=== PATIENT | female | born 1940 | race Caucasian/White ===

== ENCOUNTER 2016-11-02 16:04 | Outpatient (CLI) | payer MEDICARE ==
[2016-11-02 22:05] LABS: Bilirubin Negative (Negative); Blood, Urine Trace (Negative); Glucose, Urine (Dipstick) Negative (Negative); Ketone, Urine Negative (Negative); Nitrite Positive (Negative); Protein, Urine (Dipstick) Negative (Neg-Trace); Urobilinogen 0.2 mg/dL (0.2-1.0)
[2016-11-02 22:28] LABS: Bacteria/HPF 4+ HPF (None Seen); RBC/HPF None Seen HPF (0-3)
== END 2016-11-02 16:05 | disposition home or self-care (01) ==
LOC: NAVSJIPCSP 16:04
PROVIDERS: ATTEND Internal Medicine
DX: N39.0 Urinary tract infection, site not specified (principal)
CPT/HCPCS: 81003; 81015; 87086

== ENCOUNTER 2016-11-09 08:50 | Outpatient (CLI) | payer MEDICARE ==
[2016-11-09 12:27] LABS: #Basophils 0.1 thou/uL (0.0-0.2); #Eosinphils 0.5 thou/uL (0.0-0.7); #Lymphocytes 2.5 thou/uL (1.20-3.40); #Monocytes 0.5 thou/uL (0.11-0.59); #Neutrophils 5.6 thou/uL (1.40-6.50); %Basophils 1.5 % (0.0-1.0); %Lymphocytes 27.5 % (21.0-51.0); %Monocytes 5.2 % (0.0-10.0); Hematocrit 39.7 % (36.0-47.0); Mean Platelet Volume 5.6 fL (7.4-10.4); Red Blood Cell (RBC) Count 4.42 mill/uL (4.20-5.40); White Blood Cell (WBC) Count 9.2 thou/uL (4.8-10.8)
[2016-11-09 12:33] LABS: ALT (SGPT) 16 U/L (0-55); AST (SGOT) 14 U/L (5-34); Alkaline Phosphatase 77 U/L (40-150); Anion Gap 20 mmol/L (10-20); BUN (Urea Nitrogen) 14 mg/dL (9.8-20.1); Bilirubin, Total 0.5 mg/dL (0.2-1.2); Calc. Creatinine Clearance 0 mL/min (70-130); Calcium 9.5 mg/dL (7.8-10.44); Carbon Dioxide 22 mmol/L (23-31); Chloride 106 mmol/L (98-107); Estimated GFR-MDRD 57; Globulin 2.6 g/dL (2.4-3.5); LDL Cholesterol, Calculated 117 mg/dL; Protein, Total 6.7 g/dL (5.8-8.1)
== END 2016-11-09 08:51 ==
LOC: NAVSJIPCSP 08:50
PROVIDERS: ATTEND Internal Medicine
DX: E78.5 Hyperlipidemia, unspecified (principal)
CPT/HCPCS: 36415; 80053; 80061; 85025

== ENCOUNTER 2017-03-08 16:03 | Outpatient (CLI) | payer MEDICARE ==
--- NOTE | 2017-03-08 16:57 | RAD ---
PA AND LATERAL VIEWS OF CHEST: Date: 03/08/17 HISTORY: Bronchitis with acute exacerbation. FINDINGS/IMPRESSION: The heart size is normal. The lungs are well expanded. There is mild infiltrate in the left posterio r lung base. No pneumothorax or pleural effusions are seen. The possibility of pneumonia should be c onsidered. POS: OFF
== END 2017-03-08 16:04 | disposition home or self-care (01) ==
LOC: NAV RAD 16:03
PROVIDERS: ATTEND Internal Medicine
DX: J45.901 Unspecified asthma with (acute) exacerbation (principal); R91.8 Other nonspecific abnormal finding of lung field
CPT/HCPCS: 71020

== ENCOUNTER 2017-04-25 08:28 | Outpatient (CLI) | payer MEDICARE ==
[2017-04-25 12:58] LABS: ALT (SGPT) 18 U/L (8-55); AST (SGOT) 16 U/L (5-34); Albumin 4.1 g/dL (3.4-4.8); Alkaline Phosphatase 74 U/L (40-150); Anion Gap 13 mmol/L (10-20); BUN (Urea Nitrogen) 21 mg/dL (9.8-20.1); Bilirubin, Total 0.5 mg/dL (0.2-1.2); Calc. Creatinine Clearance 0 mL/min (70-130); Calcium 9.3 mg/dL (7.8-10.44); Carbon Dioxide 25 mmol/L (23-31); Cardiac Risk 3.1 (Less than 4.5); Chloride 109 mmol/L (98-107); Cholesterol 179 mg/dl (< 200 Desired); Estimated GFR-MDRD 50; Globulin 2.3 g/dL (2.4-3.5); Glucose 104 mg/dL (83-110); HDL Cholesterol 58 mg/dL (>60 Neg Risk); LDL Cholesterol, Calculated 106 mg/dL; Potassium 4.4 mmol/L (3.5-5.1); Protein, Total 6.4 g/dL (6.0-8.3); Sodium 143 mmol/L (136-145); Triglycerides 76 mg/dL (Less than 150)
[2017-04-25 13:18] LABS: Bilirubin Negative (Negative); Blood, Urine Negative (Negative); Clarity Clear (Clear); Glucose, Urine (Dipstick) Negative (Negative); Leukocyte Negative (Negative); Nitrite Negative (Negative); Protein, Urine (Dipstick) Negative (Neg-Trace); Specific Gravity, Urine 1.015 (1.005-1.030); Urobilinogen 0.2 mg/dL (0.2-1.0); pH, Urine 6.5 (5.0-9.0)
[2017-04-25 13:29] LABS: Hemoglobin A1c 5.6 % (4.0-6.0)
[2017-04-25 13:33] LABS: #Basophils 0.1 thou/uL (0.0-0.2); #Eosinphils 0.4 thou/uL (0.0-0.7); #Lymphocytes 2.3 thou/uL (1.20-3.40); #Monocytes 0.5 thou/uL (0.11-0.59); #Neutrophils 5.1 thou/uL (1.40-6.50); %Basophils 1.3 % (0.0-1.0); %Eosinophils 4.7 % (0.0-10.0); %Lymphocytes 27.3 % (21.0-51.0); %Monocytes 6.1 % (0.0-10.0); %Neutrophils 60.6 % (42.0-75.0); Hemoglobin 12.1 g/dL (12.0-16.0); Mean Corpuscular HGB CONC 31.6 g/dL (32.0-36.0); Mean Corpuscular Hemoglobin 28.1 pg (27.0-31.0); Mean Corpuscular Volume 88.9 fl (81.0-99.0); Mean Platelet Volume 6.4 fL (7.4-10.4); Platelet Count 260 thou/uL (130-400); RBC Distribution Width 13.8 % (11.5-14.5); White Blood Cell (WBC) Count 8.4 thou/uL (4.8-10.8)
== END 2017-04-25 08:29 | disposition home or self-care (01) ==
LOC: NAVSJIPCSP 08:28
PROVIDERS: ATTEND Internal Medicine
DX: Z51.81 Encounter for therapeutic drug level monitoring (principal); Z79.899 Other long term (current) drug therapy
CPT/HCPCS: 36415; 80053; 80061; 81003; 83036; 84443; 85025

== ENCOUNTER 2018-06-26 11:37 | Outpatient (CLI) | payer MEDICARE ==
--- NOTE | 2018-06-26 14:14 | RAD ---
THREE VIEWS LUMBAR SPINE: INDICATION: Back pain. FINDINGS: There is severe facet and degenerative disk disease at L5-S1 with grade I anterolisthesis. There is advanced facet osteoarthrosis at L4-5. There is mild residual degenerative disk disease at L4-5 thro ugh L1-2. Vertebral body heights are preserved. Cholecystectomy clips are seen within the right upp er quadrant. There is diffuse osteopenia. IMPRESSION: 1. Advanced spondylosis at L5-S1. 2. Severe facet osteoarthrosis at L4-5. 3. No acute osseous abnormality. POS: KETAN
== END 2018-06-26 11:38 | disposition home or self-care (01) ==
LOC: NAV RAD 11:37
PROVIDERS: ATTEND Internal Medicine
DX: M47.896 Other spondylosis, lumbar region (principal); M47.897 Other spondylosis, lumbosacral region
CPT/HCPCS: 72100